=== PATIENT | male | born 1995 | race Two or more races ===

== ENCOUNTER 2024-02-27 08:18 | Emergency (ER) | payer SELFPAY ==
[2024-02-27] MEDS: Sulfamethoxazole/Trimethoprim 800-160 MG Tab PO ONE (08:56)
[2024-02-27] MEDS: Ibuprofen 600 MG Tab PO ONE (08:56)
== END 2024-02-27 09:03 | disposition home or self-care (01) ==
LOC: MW.ED 08:18
DX: L03.011 Cellulitis of right finger (principal); Z88.0 Allergy status to penicillin; Z75.8 Other problems related to medical facilities and other health care
CPT/HCPCS: 99283; A9270